=== PATIENT | male | born 1955 | race American Indian/Alaskan Native ===

== ENCOUNTER 2017-09-16 07:46 | Outpatient (CLI) | payer MEDICARE ==
--- NOTE | 2017-09-16 08:26 | Cat Scan Report ---
CT HEAD WITHOUT CONTRAST: HISTORY: Headache. TECHNIQUE: Sequential 2.5mm CT images. COMPARISON: none. FINDINGS: Cerebral Parenchyma: Within normal limits. Cerebellum: Within normal limits. Brainstem: Within normal limits. Ventricles: Normal. Sella: Normal. Extra-axial spaces: Normal. Basal Cisterns: Normal. Intracranial Hemorrhage: None. Midline Shift: None. Calvarium: Normal. Sinuses: Normal. Mastoid Air Cells: Normal. Visualized Orbits: Normal. IMPRESSION: Cranial CT scan within normal limits.
== END 2017-09-16 07:47 | disposition home or self-care (01) ==
LOC: CT 07:46
PROVIDERS: ATTEND Nurse Practitioner
DX: R51 Headache (principal)
CPT/HCPCS: 70450

== ENCOUNTER 2017-11-03 13:29 | Outpatient (CLI) | payer MEDICARE ==
[2017-11-03 13:45] LABS: Basophils # (Auto) 0.1 K/mm3 (0.0-0.1); Basophils % (Auto) 1.8 % (0.0-1.8); Eosinophils # (Auto) 0.1 K/mm3 (0.0-0.4); Hematocrit 45.3 % (35.5-45.6); Hemoglobin 14.9 gm/dl (11.8-15.2); Lymphocytes # (Auto) 1.6 K/mm3 (1.2-5.4); Lymphocytes % (Auto) 33.6 % (13.4-35.0); Mean Corpuscular HGB Conc 33 % (32-34); Mean Corpuscular Hemoglobin 29 pg (28-32); Mean Corpuscular Volume 89 fl (84-94); Monocytes # (Auto) 0.4 K/mm3 (0.0-0.8); Monocytes % (Auto) 7.8 % (0.0-7.3); Platelet Count 188 K/mm3 (140-440); Red Blood Count 5.09 M/mm3 (3.65-5.03); Red Cell Distribution Width 13.1 % (13.2-15.2)
[2017-11-03 14:30] LABS: Erythrocyte Sedimentation Rate 1 mm/Hr (0-20)
== END 2017-11-03 13:30 | disposition home or self-care (01) ==
LOC: LAB 13:29
PROVIDERS: ATTEND Specialist
DX: R51 Headache (principal)
CPT/HCPCS: 36415; 85025; 85652

== ENCOUNTER 2017-12-30 13:05 | Outpatient (CLI) | payer MEDICARE ==
--- NOTE | 2018-01-02 08:01 | XRay Report ---
CERVICAL SPINE, 5 views: History: Cervicalgia No comparison. There is mild reversal of the normal cervical lordosis. Moderate degenerative disc disease is identified at C4-5 and C5-6. The remaining disc levels and facet joints are unremarkable. No evidence for a fracture, malalignment or bone lesion. The oblique images suggest mild neural foraminal narrowing at C4-5 and C5-6 bilaterally estimated at less than 50%. IMPRESSION: Cervical spondylosis as described above.
== END 2017-12-30 13:06 | disposition home or self-care (01) ==
LOC: XRAY 13:05
PROVIDERS: ATTEND Internal Medicine
DX: M47.892 Other spondylosis, cervical region (principal); I10 Essential (primary) hypertension; M19.90 Unspecified osteoarthritis, unspecified site
CPT/HCPCS: 72050

== ENCOUNTER 2018-10-16 09:52 | Outpatient (CLI) | payer MEDICARE ==
[2018-10-16 11:06] LABS: Hematocrit 44.4 % (35.5-45.6); Hemoglobin 15.1 gm/dl (11.8-15.2); Mean Corpuscular HGB Conc 34 % (32-34); Mean Corpuscular Volume 89 fl (84-94); Platelet Count 197 K/mm3 (140-440); Red Blood Count 4.98 M/mm3 (3.65-5.03); Red Cell Distribution Width 13.9 % (13.2-15.2)
[2018-10-16 11:27] LABS: Erythrocyte Sedimentation Rate 1 mm/Hr (0-20)
[2018-10-16 12:06] LABS: BUN/Creatinine Ratio 60; Blood Urea Nitrogen 18 mg/dL (9-20); Calcium 8.9 mg/dL (8.4-10.2); Hemolysis Index 5
[2018-10-16 14:02] LABS: Alanine Aminotransferase 34 units/L (7-56); Albumin 4.4 g/dL (3.9-5); Chol/HDL Ratio 4.66 %; HDL Cholesterol 45 mg/dL (40-59); LDL Cholesterol,Direct 159 mg/dL (50-130)
[2018-10-19 07:43] LABS: Vitamin D, 25-OH, D2 <4 ng/mL
== END 2018-10-16 09:53 | disposition home or self-care (01) ==
LOC: LAB 09:52
PROVIDERS: ATTEND Internal Medicine
DX: Z13.21 Encounter for screening for nutritional disorder (principal); Z13.1 Encounter for screening for diabetes mellitus; E78.2 Mixed hyperlipidemia; M13.0 Polyarthritis, unspecified; I10 Essential (primary) hypertension; R79.89 Other specified abnormal findings of blood chemistry
CPT/HCPCS: 36415; 80053; 80061; 82306; 82607; 83036; 84443; 85027; 85652; 86140; 86200; 86618

== ENCOUNTER 2019-03-05 09:57 | Outpatient (CLI) | payer MEDICARE ==
[2019-03-05 11:22] LABS: Chol/HDL Ratio 3.76 %
[2019-03-08 14:53] LABS: Vitamin D, 25-OH, D2 <4 ng/mL
== END 2019-03-05 09:58 | disposition home or self-care (01) ==
LOC: LAB 09:57
PROVIDERS: ATTEND Internal Medicine
DX: E78.2 Mixed hyperlipidemia (principal); E55.9 Vitamin D deficiency, unspecified; R73.03 Prediabetes; I10 Essential (primary) hypertension; M19.90 Unspecified osteoarthritis, unspecified site; Z91.81 History of falling
CPT/HCPCS: 36415; 80061; 82306; 83036

== ENCOUNTER 2020-01-09 09:57 | Day surgery (SDC) | payer MEDICARE ==
[~2020-01-09 09:57] MED LIST: LACTATED RINGERS 1,000 ML IV SCH; MIDAZOLAM 2 MG/2 ML INJ IV NR
[2020-01-09] MEDS ORDERED: fentaNYL 100 MCG/2 ML INJ IV PRN (10:54)
--- NOTE | 2020-01-09 10:54 | Anesthesia Consultation ---
Anesthesia Consult and Med Hx - Airway Anesthetic Teeth Evaluation: Good ROM Head & Neck: Adequate Mental/Hyoid Distance: Adequate Mallampati Class: Class I Intubation Access Assessment: Good - Pulmonary Exam CTA: Yes - Cardiac Exam Cardiac Exam: RRR - Pre-Operative Health Status ASA Pre-Surgery Classification: ASA2 Proposed Anesthetic Plan: General - Pulmonary Hx Smoking: No Hx Respiratory Symptoms: No Hx Sleep Apnea: Yes (compliant w/ CPAP) - Cardiovascular System Hx Hypertension: Yes (took amolodipine yesterday PM) Hx Heart Attack/AMI: No Hx Percutaneous Transluminal Coronary Angioplasty (PTCA): No Hx Cardia Arrhythmia: No - Central Nervous System CVA: No Hx Back Pain: Yes (BACK-SPONDYLITIS NECK-DJD DJD-NECK) Hx Psychiatric Problems: Yes (depression) - Gastrointestinal Hx Gastroesophageal Reflux Disease: Yes (diet controlled) - Endocrine Hx Renal Disease: No Hx Liver Disease: No Hx Insulin Dependent Diabetes: No Hx Non-Insulin Dependent Diabetes: No Hx Thyroid Disease: No - Other Systems Hx Alcohol Use: Yes (3-12 BEERS PER WEEK) Hx Obesity: No - Additional Comments Anesthesia Medical History Comments: No hx anesthetic complications.
--- NOTE | 2020-01-09 10:54 | Anesthesia Day of Surgery ---
Anesthesia Day of Surgery - Day of Surgery Patient Examined: Yes Patient H&P Reviewed: Yes Patient is NPO: Yes
[2020-01-09] MEDS ORDERED: ceFAZolin/STERILE WATER 2 GM/20 ML SYRINGE IV NR (12:28)
[2020-01-09] MEDS ORDERED: SODIUM CHLORIDE 0.9% 500 ML 500 ML ONE (12:33)
[2020-01-09] MEDS ORDERED: propofoL 200 MG/20 ML VIAL IV ONE (12:40)
[2020-01-09] MEDS ORDERED: ONDANSETRON 4 MG/2 ML INJ ONE (12:50)
[2020-01-09] MEDS ORDERED: KETOROLAC 30 MG/1 ML INJ ONE (12:50)
[2020-01-09] MEDS ORDERED: fentaNYL 100 MCG/2 ML INJ ONE (12:50)
[2020-01-09] MEDS ORDERED: WATER FOR IRRIG STERILE 2000 ML IR ONE (13:22)
[2020-01-09] MEDS ORDERED: WATER FOR IRRIG STERILE 1,500 ML BOTTLE IR ONE (13:23)
[2020-01-09] MEDS ORDERED: SODIUM CHLORIDE 0.9% 500 ML IVPB IRRIGATION ONE (13:23)
--- NOTE | 2020-01-09 13:37 | Post Operative Note ---
Date of procedure: 01/09/20 Pre-op diagnosis: bph Post-op diagnosis: same Findings: trilobar Procedure: rezum Anesthesia: GETA Surgeon: LUTHER PUENTES Estimated blood loss: none Pathology: none Condition: stable Disposition: PACU
--- NOTE | 2020-01-09 13:40 | Discharge Summary ---
Short Stay Discharge Plan Activity: other Weight Bearing Status: Full Weight Bearing Diet: regular, low fat, low salt Special Instructions: other (home with catheter ) Durable Medical Equipment Needed Upon Discharge: other (folay care ) Follow up with: GAYLE DUKES MD [Primary Care Provider] - 7 Days LUTHER PUENTES MD [Staff Physician] - 7 Days
--- NOTE | 2020-01-09 13:44 | Operative Report ---
PREOPERATIVE DIAGNOSES: Bladder outlet obstruction, trilobar hypertrophy, approximately 40 gram prostate. POSTOPERATIVE DIAGNOSES: Bladder outlet obstruction, trilobar hypertrophy, approximately 40 gram prostate. PROCEDURE: Cystoscopy, Rezum therapy. SURGEON: Dr. Stein. ANESTHESIA: General. FINDINGS: This is a gentleman with a moderately trabeculated bladder, trilobar hypertrophy with a small middle lobe, now presents for treatment. All options were discussed including resection. He now presents for surgery. DESCRIPTION OF PROCEDURE: The patient was brought to the operating room and placed on operating table. Following induction of anesthesia, placed in lithotomy position, prepped and draped in usual sterile fashion. Cystourethroscopy showed a middle lobe, which was small, but acting like a ball valve. Rezum therapy was primed and then was placed. Two treatments on the right and 1 on the left and 1 in the median bar was carried out for a total of 4 treatment. The patient tolerated the procedure well. A 20 coude was easily placed. Urine was clear. The patient tolerated the procedure well and brought to recovery in stable condition. JOB# [id number] TAWANDA/LUISITO
[2020-01-09 14:30] VITALS: BP 126/81
--- NOTE | 2020-01-09 15:28 | Post Anesthesia Evaluation ---
- Post Anesthesia Evaluation Patient Participated: Yes Airway Patent: Yes Stable Respiratory Function: Yes Nausea/Vomiting: No Temp > 96.8F: Yes Pain Manageable: Yes Adequeate Hydration: Yes Anesthesia Complications: No
== END 2020-01-09 14:40 | disposition home or self-care (01) ==
LOC: OR 09:57
PROVIDERS: ATTEND Urology
DX: N32.0 Bladder-neck obstruction (principal); N40.0 Benign prostatic hyperplasia without lower urinary tract symptoms; E78.00 Pure hypercholesterolemia, unspecified; I10 Essential (primary) hypertension; K21.9 Gastro-esophageal reflux disease without esophagitis; M19.90 Unspecified osteoarthritis, unspecified site; F32.9 Major depressive disorder, single episode, unspecified; Z72.89 Other problems related to lifestyle; Z91.81 History of falling; Z79.899 Other long term (current) drug therapy; Z98.890 Other specified postprocedural states
CPT/HCPCS: 53854; A4217; J0690; J1885; J2250; J2405; J2704; J3010; J7040; J7120

== ENCOUNTER 2020-12-08 11:25 | Outpatient (CLI) | payer MEDICARE ==
[2020-12-08 12:23] LABS: Basophils % (Auto) 0.3 % (0.0-1.8); Eosinophils # (Auto) 0.4 K/mm3 (0.0-0.4); Eosinophils % (Auto) 4.5 % (0.0-4.3); Hematocrit 46.5 % (35.5-45.6); Hemoglobin 15.5 gm/dl (11.8-15.2); Lymphocytes # (Auto) 1.8 K/mm3 (1.2-5.4); Lymphocytes % (Auto) 21.6 % (13.4-35.0); Mean Corpuscular HGB Conc 33 % (32-34); Mean Corpuscular Volume 89 fl (84-94); Monocytes # (Auto) 0.5 K/mm3 (0.0-0.8); Monocytes % (Auto) 6.1 % (0.0-7.3); Platelet Count 232 K/mm3 (140-440); Red Blood Count 5.24 M/mm3 (3.65-5.03); Red Cell Distribution Width 13.7 % (13.2-15.2)
[2020-12-08 12:27] LABS: Alanine Aminotransferase 60 units/L (7-56); Albumin 4.7 g/dL (3.9-5); BUN/Creatinine Ratio 11; Blood Urea Nitrogen 11 mg/dL (9-20); Calcium 9.7 mg/dL (8.4-10.2); Chol/HDL Ratio 3.36 %; HDL Cholesterol 55 mg/dL (40-59); Hemolysis Index 3; LDL Cholesterol,Direct 134 mg/dL (50-130)
[2020-12-11 12:12] LABS: Vitamin D, 25-OH, D2 <4 ng/mL
== END 2020-12-08 11:26 | disposition home or self-care (01) ==
LOC: LAB 11:25
PROVIDERS: ATTEND Internal Medicine
DX: Z00.00 Encounter for general adult medical examination without abnormal findings (principal); J06.9 Acute upper respiratory infection, unspecified; R73.03 Prediabetes; E78.2 Mixed hyperlipidemia; I10 Essential (primary) hypertension; E55.9 Vitamin D deficiency, unspecified; R39.11 Hesitancy of micturition
CPT/HCPCS: 36415; 80053; 80061; 82306; 83036; 84153; 84443; 85025

== ENCOUNTER 2020-12-09 13:08 | Outpatient (CLI) | payer MEDICARE ==
--- NOTE | 2020-12-09 18:16 | Cat Scan Report ---
CT LUMBAR SPINE WITH AND WITHOUT CONTRAST HISTORY: Back pain COMPARISON: CT scan of the lumbar spine from 01/13/2021 TECHNIQUE: CT images of the lumbar spine were obtained before and after 100 mL of Omnipaque 300. Sag ittal and coronal reformats were post-processed.All CT scans at this location are performed using CT dose reduction for ALARA by means of automated exposure control. CONTRAST: 100 mL of Omnipaque 300 FINDINGS: Alignment: Normal. No traumatic subluxation. Vertebrae:No significant abnormality. No fracture. Disc Spaces: T11-T12 and T12-L1: Normal L1-L2: Normal L2-L3: Broad-based bulging disc more towards the left side L3-L4: Bulging disc L4-L5: Trace retrolisthesis; bulging disc L5-S1: Anterior and posterior lumbar interbody fusion; osseous integration in the midline; pedicle sc rews are optimally recessed; left subarticular zone disc protrusion with calcified annulus; left late ral recess stenoses; unchanged Facet Joints:No significant abnormality. Additional Findings: None IMPRESSION: L5-S1: Anterior and posterior lumbar interbody fusion; laminectomy; left lateral recess stenoses prev iously seen left subarticular zone disc protrusion with calcified annulus unchanged CT findings unchanged Signer Name: Maribel Urena MD Signed: 12/09/2020 6:11 PM Workstation Name: [id number]
== END 2020-12-09 13:09 | disposition home or self-care (01) ==
LOC: CT 13:08
PROVIDERS: ATTEND Anesthesiology
DX: M51.16 Intervertebral disc disorders with radiculopathy, lumbar region (principal); M43.27 Fusion of spine, lumbosacral region
CPT/HCPCS: 72133; Q9967

== ENCOUNTER 2021-04-17 09:22 | Outpatient (CLI) | payer MEDICARE ==
[2021-04-17 10:04] LABS: Chol/HDL Ratio 3.8 %
== END 2021-04-17 09:23 | disposition home or self-care (01) ==
LOC: LAB 09:22
PROVIDERS: ATTEND Internal Medicine
DX: E78.2 Mixed hyperlipidemia (principal); R73.03 Prediabetes
CPT/HCPCS: 36415; 80061; 83036

== ENCOUNTER 2021-08-24 09:43 | Outpatient (CLI) | payer MEDICARE ==
[2021-08-24 10:43] LABS: Chol/HDL Ratio 2.8 %
== END 2021-08-24 09:44 | disposition home or self-care (01) ==
LOC: LAB 09:43
PROVIDERS: ATTEND Internal Medicine
DX: E78.2 Mixed hyperlipidemia (principal); R73.03 Prediabetes
CPT/HCPCS: 36415; 80061; 83036

== ENCOUNTER 2021-12-28 10:02 | Outpatient (CLI) | payer MEDICARE ==
[2021-12-28 10:57] LABS: Basophils % (Auto) 0.5 % (0.0-1.8); Eosinophils # (Auto) 0.2 K/mm3 (0.0-0.4); Eosinophils % (Auto) 4.1 % (0.0-4.3); Hematocrit 41.7 % (35.5-45.6); Hemoglobin 14.3 gm/dl (11.8-15.2); Lymphocytes # (Auto) 1.5 K/mm3 (1.2-5.4); Lymphocytes % (Auto) 31.1 % (13.4-35.0); Mean Corpuscular HGB Conc 34 % (32-34); Mean Corpuscular Volume 90 fl (84-94); Monocytes # (Auto) 0.3 K/mm3 (0.0-0.8); Monocytes % (Auto) 7.3 % (0.0-7.3); Platelet Count 213 K/mm3 (140-440); Red Blood Count 4.66 M/mm3 (3.65-5.03); Red Cell Distribution Width 13.7 % (13.2-15.2)
[2021-12-28 12:24] LABS: Alanine Aminotransferase 25 units/L (7-56); Albumin 4.7 g/dL (3.9-5); BUN/Creatinine Ratio 18; Blood Urea Nitrogen 18 mg/dL (9-20); Calcium 9.4 mg/dL (8.4-10.2); Chol/HDL Ratio 3.47 %; HDL Cholesterol 61 mg/dL (40-59); Hemolysis Index 1; LDL Cholesterol,Direct 137 mg/dL (50-130)
== END 2021-12-28 10:03 | disposition home or self-care (01) ==
LOC: LAB 10:02
PROVIDERS: ATTEND Internal Medicine
DX: I10 Essential (primary) hypertension (principal); R73.03 Prediabetes; E55.9 Vitamin D deficiency, unspecified; R97.20 Elevated prostate specific antigen [PSA]; E78.2 Mixed hyperlipidemia; Z00.00 Encounter for general adult medical examination without abnormal findings
CPT/HCPCS: 36415; 80053; 80061; 82306; 83036; 84153; 84443; 85025